=== PATIENT | female | born 1995 | race Two or more races ===

== ENCOUNTER → 2021-04-25 | Outpatient (CLI) | payer MEDICAID, OTHER ==
[~2021-04-25] VITALS: Ht 162.6 cm; Wt 119.5 kg
[2021-04-25 17:27] VITALS: BP 103/57
== END | disposition home or self-care (01) ==
LOC: LDOP 17:11
PROVIDERS: ATTEND Student in an Organized Health Care Education/Training Program
DX: O42.913 Preterm premature rupture of membranes, unspecified as to length of time between rupture and onset of labor, third trimester (principal); N89.8 Other specified noninflammatory disorders of vagina; Z3A.30 30 weeks gestation of pregnancy
CPT/HCPCS: 59025; 76815; 84112; 87086

== ENCOUNTER 2021-05-27 10:12 | Outpatient (CLI) | payer OTHER ==
[~2021-05-27] VITALS: Ht 162.6 cm; Wt 75.0 kg
[2021-05-27 10:59] VITALS: BP 108/65
[2021-06-10] MEDS ORDERED: OXYC1TAB14 PO (11:52)
== END 2021-05-27 11:40 | disposition home or self-care (01) ==
LOC: LDOP 10:12
PROVIDERS: ATTEND Student in an Organized Health Care Education/Training Program
DX: O36.8130 Decreased fetal movements, third trimester, not applicable or unspecified (principal); Z3A.34 34 weeks gestation of pregnancy
CPT/HCPCS: 59025

== ENCOUNTER 2021-06-07 21:11 | Inpatient (IN) | payer OTHER ==
[~2021-06-07] VITALS: Ht 162.6 cm; Wt 75.0 kg
[2021-06-07] MEDS ORDERED: OXYTOCIN 30U/ 0.9% NaCL 500ML 500 ML ONE (21:41)
[2021-06-07] MEDS ORDERED: NEWBORN KIT ONE (21:41)
[2021-06-07] MEDS ORDERED: METOCLOPRAMIDE 5 MG/ML, 2ML ONE (21:41)
[2021-06-07] MEDS ORDERED: SODIUM CITRATE/CITRIC ACID 15 ML UDC ONE (21:42)
[2021-06-07 21:43] VITALS: BP 115/55
[2021-06-07] MEDS ORDERED: AZITHROMYCIN 500 MG in SODIUM CHLORIDE 0.9% 250 ML IV ONE (22:00)
[2021-06-07] MEDS ORDERED: CALCIUM CARBONATE 500 MG TAB.CHEW PO PRN (22:00)
[2021-06-07] MEDS ORDERED: METOCLOPRAMIDE 5 MG/ML, 2ML IV ONE (22:00)
[2021-06-07] MEDS ORDERED: LACTATED RINGERS 1,000 ML IVBOLUS ONE (22:00)
[2021-06-07] MEDS ORDERED: SODIUM CITRATE/CITRIC ACID 30 ML UDC PO ONE (22:00)
[2021-06-07] MEDS ORDERED: ONDANSETRON 2MG/ML, 2ML IVPush ONE (22:00)
[2021-06-07] MEDS ORDERED: CEFAZOLIN PMX 1GM/50ML 50 ML IVPB ONE (22:00)
[2021-06-07 22:14] LABS: BASOPHILS % (AUTO) 0 % (0-1); EOSINOPHILS % (AUTO) 0 % (1-7); LYMPHOCYTES % (AUTO) 18 % (22-44); MEAN CORPUSCULAR HEMOGLOBIN 30.6 pg (27.0-34.8); MEAN CORPUSCULAR HGB CONC 34.1 g/dL (32.4-35.8); MONOCYTES % (AUTO) 8 % (2-9); NEUTROPHILS % (AUTO) 73 % (42-75); PLATELET COUNT 206 x10^3/uL (130-400); RED BLOOD COUNT 3.62 x10^6/uL (3.82-5.3); RED CELL DISTRIBUTION WIDTH 15.9 % (9.6-15.2)
[2021-06-07] MEDS ORDERED: CEFAZOLIN 1,000 MG ONE (22:42)
[2021-06-07] MEDS ORDERED: EPHEDRINE 50 MG/ML, 1ML ONE (22:42)
[2021-06-07] MEDS ORDERED: OXYTOCIN 10 UNITS/ML, 1ML ONE ×3 (22:42)
[2021-06-07] MEDS ORDERED: EPINEPHRINE 1 MG/ML, 1ML ONE (22:42)
[2021-06-07] MEDS ORDERED: FENTANYL PF 100 MCG/2ML ONE (22:43)
[2021-06-07] MEDS ORDERED: ONDANSETRON 2MG/ML, 2ML IVPush PRN (23:00)
[2021-06-07] MEDS ORDERED: morphine SULFATE 10 MG/ML, 1ML IVPush PRN (23:00)
[2021-06-07] MEDS ORDERED: MEPERIDINE/PF 25MG/0.5ML IVPush PRN (23:00)
[2021-06-07] MEDS ORDERED: ACETAMINOPHEN 325 MG TABLET PO PRN (23:00)
[2021-06-07] MEDS ORDERED: PROMETHAZINE 25 MG/ML, 1ML IVPush PRN (23:00)
[2021-06-07] MEDS ORDERED: EPHEDRINE 50 MG/ML, 1ML IVPush PRN (23:00)
[2021-06-07] MEDS ORDERED: FENTANYL PF 100 MCG/2ML IV PRN (23:00)
[2021-06-07] MEDS ORDERED: OXYcodone 5 MG/5 ML ORAL.SOL UDC PO PRN (23:00)
[2021-06-07] MEDS ORDERED: TRANEXAMIC ACID 100 MG/ML, 10ML ONE (23:32)
[2021-06-08] MEDS ORDERED: MORPHINE SULFATE 4 MG/ML, 1ML IVPush PRN (00:30)
[2021-06-08] MEDS ORDERED: CALCIUM CARBONATE 500 MG TAB.CHEW PO PRN (00:30)
[2021-06-08] MEDS ORDERED: ONDANSETRON 2MG/ML, 2ML IV PRN ×2 (00:30→01:00)
[2021-06-08] MEDS ORDERED: SIMETHICONE 80 MG CHEW TAB PO PRN (00:30)
[2021-06-08] MEDS ORDERED: OXYTOCIN 30U/ 0.9% NaCL 500ML 500 ML IV SCH (00:30)
[2021-06-08] MEDS ORDERED: METOCLOPRAMIDE 5 MG/ML, 2ML IV PRN (00:30)
[2021-06-08] MEDS: LACTATED RINGERS 1,000 ML IV SCH ×5 (00:30→16:30)
[2021-06-08] MEDS ORDERED: DIPH,PERTUSS(ACELL),TET VAC/PF NC IM-VACC PRN (00:30)
[2021-06-08] MEDS ORDERED: MISOPROSTOL 200 MCG TABLET SL PRN (00:30)
[2021-06-08] MEDS ORDERED: OXYcodone IR 5MG TABLET PO PRN ×2 (00:30)
[2021-06-08] MEDS ORDERED: IBUPROFEN 800 MG TABLET PO PRN ×2 (00:30→01:00)
[2021-06-08] MEDS ORDERED: ACETAMINOPHEN 325 MG TABLET PO PRN ×2 (00:30→01:00)
[2021-06-08] MEDS ORDERED: METHYLERGONOVINE 0.2 MG/ML IM PRN (00:30)
[2021-06-08] MEDS ORDERED: DOCUSATE 100 MG CAPSULE PO PRN (01:00)
[2021-06-08] MEDS ORDERED: HYDROcodone/APAP 5/325 TABLET PO PRN (01:00)
[2021-06-08] MEDS ORDERED: MISOPROSTOL 200 MCG TABLET PR PRN (01:00)
[2021-06-08] MEDS: OXYTOCIN 30U/ 0.9% NaCL 500ML 500 ML IV SCH ×3 (01:00→21:00)
[2021-06-08] MEDS ORDERED: RHOGAM FROM BLOOD BANK 1 NOTE EA IM/IV ONE (01:00)
[2021-06-08] MEDS ORDERED: BISACODYL 10 MG SUPP PR PRN (01:00)
[2021-06-08 02:54] VITALS: BP 117/73
[2021-06-08] MEDS ORDERED: MISOPROSTOL 200 MCG TABLET ONE (02:54)
[2021-06-08] MEDS ORDERED: METHYLERGONOVINE 0.2 MG/ML IM ONE (02:54)
[2021-06-08] MEDS ORDERED: TRANEXAMIC ACID 1,000 MG in SODIUM CHLORIDE 0.9% 100 ML IVPB ONE (03:30)
[2021-06-08] MEDS: OXYcodone/APAP 5/325MG TABLET PO PRN ×4 (05:51→22:18)
[2021-06-08] MEDS ORDERED: KETOROLAC 30 MG/1 ML IV SCH (06:30)
[2021-06-08 07:30] VITALS: BP 121/71
[2021-06-08] MEDS ORDERED: KETOROLAC 30 MG/1 ML ONE (07:31)
[2021-06-08] MEDS: KETOROLAC 30 MG/1 ML IVPush SCH ×2 (08:00→13:54)
[2021-06-08] MEDS: DOCUSATE 100 MG CAPSULE PO SCH ×2 (09:00→20:14)
[2021-06-08] MEDS: PRENATAL VIT/IRON/FA 1 EACH TABLET PO SCH (09:00)
[2021-06-08] MEDS ORDERED: PRENATAL VIT/IRON/FA 1 EACH TABLET PO SCH (09:00)
[2021-06-08 09:27] LABS: BASOPHILS % (AUTO) 0 % (0-1); EOSINOPHILS % (AUTO) 0 % (1-7); LYMPHOCYTES % (AUTO) 9 % (22-44); MEAN CORPUSCULAR HEMOGLOBIN 29.9 pg (27.0-34.8); MEAN CORPUSCULAR HGB CONC 33.3 g/dL (32.4-35.8); MEAN PLATELET VOLUME 9.8 fL (7.4-10.4); MONOCYTES % (AUTO) 6 % (2-9); NEUTROPHILS % (AUTO) 86 % (42-75); PLATELET COUNT 163 x10^3/uL (130-400); RED BLOOD COUNT 2.98 x10^6/uL (3.82-5.3); RED CELL DISTRIBUTION WIDTH 15.4 % (9.6-15.2)
[2021-06-08 12:15] VITALS: BP 95/61
[2021-06-08] MEDS ORDERED: IBUPROFEN 600 MG TABLET ONE (13:50)
[2021-06-08] MEDS ORDERED: IBUPROFEN 600 MG TABLET PO PRN (14:00)
[2021-06-08] MEDS: KETOROLAC 30 MG/1 ML IM SCH (20:14)
[2021-06-08 21:00] VITALS: BP 94/62
[2021-06-09] MEDS: LACTATED RINGERS 1,000 ML IV SCH ×3 (00:30→16:30)
[2021-06-09 00:47] VITALS: BP 95/62
[2021-06-09] MEDS: KETOROLAC 30 MG/1 ML IM SCH ×4 (02:35→20:00)
[2021-06-09] MEDS: OXYTOCIN 30U/ 0.9% NaCL 500ML 500 ML IV SCH ×2 (07:00→17:00)
[2021-06-09] MEDS: DOCUSATE 100 MG CAPSULE PO SCH ×2 (07:39→20:33)
[2021-06-09] MEDS: PRENATAL VIT/IRON/FA 1 EACH TABLET PO SCH (07:39)
[2021-06-09 08:10] VITALS: BP 96/66
[2021-06-09 12:00] VITALS: BP 97/62
[2021-06-09] MEDS: OXYcodone/APAP 5/325MG TABLET PO PRN ×2 (13:39→20:34)
[2021-06-09] MEDS: IBUPROFEN 600 MG TABLET PO PRN (20:33)
[2021-06-09 21:00] VITALS: BP 101/64
[2021-06-10] MEDS: LACTATED RINGERS 1,000 ML IV SCH ×2 (00:30→08:30)
[2021-06-10] MEDS: KETOROLAC 30 MG/1 ML IM SCH ×2 (02:00→08:00)
[2021-06-10] MEDS: OXYcodone/APAP 5/325MG TABLET PO PRN ×3 (02:17→10:51)
[2021-06-10] MEDS: IBUPROFEN 600 MG TABLET PO PRN ×2 (02:17→09:21)
[2021-06-10] MEDS: OXYTOCIN 30U/ 0.9% NaCL 500ML 500 ML IV SCH (03:00)
[2021-06-10 07:50] VITALS: BP 100/65
[2021-06-10] MEDS: DOCUSATE 100 MG CAPSULE PO SCH (09:20)
[2021-06-10] MEDS: PRENATAL VIT/IRON/FA 1 EACH TABLET PO SCH (09:21)
[2021-06-10] MEDS ORDERED: FERROUS GLUCONATE 324 MG TABLET PO SCH (10:00)
[2021-06-10] MEDS ORDERED: PREN1TAB60 PO (11:49)
[2021-06-10] MEDS ORDERED: DOCU-131 PO (11:49)
[2021-06-10] MEDS ORDERED: IBUP-1222 PO (11:50)
[2021-06-10] MEDS ORDERED: FERR270T PO (11:51)
[2021-06-10] MEDS ORDERED: OXYC1TAB12 PO (11:52)
== END 2021-06-10 13:35 | disposition home or self-care (01) | DRG 786 ==
LOC: LDOP 21:11 → LDIP 21:54 → 2NW 06-08 01:50
PROVIDERS: ADMIT Student in an Organized Health Care Education/Training Program; ATTEND Student in an Organized Health Care Education/Training Program
PROC: 10D00Z1 Extraction of Products of Conception, Low, Open Approach (ICD-10-PCS; principal; 2021-06-07)
DX: O42.913 Preterm premature rupture of membranes, unspecified as to length of time between rupture and onset of labor, third trimester (principal); O60.14X0 Preterm labor third trimester with preterm delivery third trimester, not applicable or unspecified; O72.1 Other immediate postpartum hemorrhage; O69.1XX0 Labor and delivery complicated by cord around neck, with compression, not applicable or unspecified; Z20.822 Contact with and (suspected) exposure to COVID-19; O34.211 Maternal care for low transverse scar from previous cesarean delivery; Z37.0 Single live birth; Z3A.36 36 weeks gestation of pregnancy
CPT/HCPCS: 36415; 85025; 86592; 86850; 86900; 86923; 87635; G0378; J0171; J0456; J0690; J1885; J3010; J2210; J2590; J2765; J7050; J7120